=== PATIENT | female | born 1995 | race Caucasian/White ===

== ENCOUNTER 2017-06-25 22:27 | Emergency (ER) | payer OTHER ==
[~2017-06-25] VITALS: Ht 167.6 cm; Wt 68.0 kg
[2017-06-25] MEDS ORDERED: MOBIC7.5 MG PO (23:29)
[2017-06-25] MEDS ORDERED: CRUTCHES MISCELL (23:51)
[2017-06-26 00:04] VITALS: BP 115/72
== END 2017-06-25 23:52 | disposition home or self-care (01) ==
LOC: ER 22:27
DX: S93.402A Sprain of unspecified ligament of left ankle, initial encounter (principal); W01.0XXA Fall on same level from slipping, tripping and stumbling without subsequent striking against object, initial encounter; Y93.01 Activity, walking, marching and hiking; Y92.89 Other specified places as the place of occurrence of the external cause; Y99.8 Other external cause status

== ENCOUNTER → 2018-03-24 | Outpatient (CLI) | payer OTHER ==
[~2018-03-24] MED LIST: CRUTCHES MISCELL; MOBIC7.5 MG PO
[2018-03-24 12:41] LABS: HEMOGLOBIN 13.3 gm/dL (12.0-15.0); MCH 29.1 pg (26.0-34.0); MCHC 34.9 g/dL (28.0-37.0); MCV 83.2 fL (80.0-100.0); RBC 4.57 mil/uL (4.20-5.00); RDW 14.1 % (10.5-14.5); WBC 6.6 thou/uL (4.0-11.0)
[2018-03-24 14:24] LABS: ALBUMIN 3.8 g/dL (3.4-5.0); CALCIUM 9.2 mg/dL (8.5-10.1); CREATININE 0.8 mg/dL (0.6-1.0); POTASSIUM 4.4 mmol/L (3.5-5.1); TOTAL BILIRUBIN 0.6 mg/dL (<0.1-1.0); TOTAL PROTEIN 7.9 g/dL (6.4-8.2)
== END ==
LOC: ULTRA 10:50
PROVIDERS: Internal Medicine
DX: K80.80 Other cholelithiasis without obstruction (principal)

== ENCOUNTER → 2018-05-03 | Outpatient (CLI) | payer OTHER ==
--- NOTE | ~2018-05-03 | 24HR ---
[facility] [place] [employer] [address] 24 HR ELECTROCARDIOGRAM REPORT Name: TAD OWUSU Room #: REG CL [facility]#: [id number] Admission: 05/03/18 Attend Phys: Rashida Melara MD Discharge: Date of : 89 Date of Service: 05/03/18 1144 Report #: [id number] THIS REPORT FOR: //name// [facility] Test Date: 2018-05-03 Test Time: 11:44:00 Pat Name: TAD OWUSU Department: Room: Gender: [employer] Guide: : 1995 Requested By: Rashida Melara Order Number: [id number] Reading MD: Nico Frias Interpretive Statements 1. The study duration was 24 hours and the technical quality was good. Predominant rhythm sinus rhythm at an average heart rate of 85 bpm, range 50-182 bpm. Longest RR interval 1.9 seconds. 2. Occasional atrial premature complexes. No atrial fibrillation or atrial flutter. Rare episodes of Wenckebach periodicity (Mobitz type I heart block) occurring probably during sleeping hours. No episodes of paroxysmal supraventricular tachycardia. 3. Occasional premature ventricular complexes; occasional ventricular trigeminy. One 6 beat damir of ventricular tachycardia at a rate of 124 bpm 4. Palpitations corresponded to isolated premature ventricular complexes Electronically Signed On 05-05-2018 7:20:57 CDT by Nico Frias [email or web address] <ELECTRONICALLY SIGNED> By: Nico Frias MD, [facility] 05/05/18 0720 1144 1144 Nico Frias MD, [facility] /EPI
== END ==
LOC: CV 10:49
DX: I49.9 Cardiac arrhythmia, unspecified (principal)